=== PATIENT | male | born 1950 | race Hispanic/Latino ===

== ENCOUNTER 2017-06-20 14:58 | Outpatient (CLI) | payer BC ==
[2017-06-20 15:58] LABS: Hemoglobin 11.5 g/dL (14.0-18.0); Mean Corpuscular HGB CONC 33.1 g/dL (32.0-36.0); Mean Corpuscular Hemoglobin 29.6 pg (27.0-31.0); Mean Corpuscular Volume 89.4 fl (80.0-94.0); Mean Platelet Volume 6.9 fL (7.4-10.4); Platelet Count 338 thou/uL (130-400); RBC Distribution Width 12.8 % (11.5-14.5); Red Blood Cell (RBC) Count 3.89 mill/uL (4.70-6.10); White Blood Cell (WBC) Count 6.3 thou/uL (4.8-10.8)
[2017-06-20 16:06] LABS: INR-International Normal Ratio 0.9; Prothrombin Time 12.6 SEC (12.0-14.7)
[2017-06-20 16:07] LABS: PTT 31.8 SEC (22.9-36.1)
[2017-06-20 16:23] LABS: ALT (SGPT) 16 U/L (8-55); AST (SGOT) 23 U/L (5-34); Albumin 4.3 g/dL (3.4-4.8); Alkaline Phosphatase 69 U/L (40-150); Anion Gap 16 mmol/L (10-20); BUN (Urea Nitrogen) 24 mg/dL (8.4-25.7); Bilirubin, Total 0.3 mg/dL (0.2-1.2); Calc. Creatinine Clearance 0 mL/min (70-130); Calcium 9.8 mg/dL (7.8-10.44); Carbon Dioxide 23 mmol/L (23-31); Chloride 106 mmol/L (98-107); Estimated GFR-MDRD 53; Globulin 3.1 g/dL (2.4-3.5); Glucose 122 mg/dL (80-115); Potassium 3.8 mmol/L (3.5-5.1); Protein, Total 7.4 g/dL (5.8-8.1); Sodium 141 mmol/L (136-145)
== END 2017-06-20 14:59 | disposition home or self-care (01) ==
LOC: LABBT 14:58
PROVIDERS: ATTEND Internal Medicine Cardiovascular Disease
DX: Z01.818 Encounter for other preprocedural examination (principal); I20.9 Angina pectoris, unspecified
CPT/HCPCS: 80053; 85027; 85610; 85730

== ENCOUNTER 2017-06-26 05:40 | Day surgery (SDC) | payer BC ==
[2017-06-20 15:28] VITALS: BMI 28.5
[2017-06-26] MEDS ORDERED: Diazepam 5 MG TAB ONE (06:53)
[2017-06-26] MEDS ORDERED: Diazepam 5 MG TAB PO SCH (07:00)
[2017-06-26 07:01] LABS: ALT (SGPT) 15 U/L (8-55); AST (SGOT) 15 U/L (5-34); Albumin 4.4 g/dL (3.4-4.8); Alkaline Phosphatase 68 U/L (40-150); Anion Gap 14 mmol/L (10-20); BUN (Urea Nitrogen) 15 mg/dL (8.4-25.7); Bilirubin, Total 0.4 mg/dL (0.2-1.2); Calc. Creatinine Clearance 111 mL/min (70-130); Calcium 10.3 mg/dL (7.8-10.44); Carbon Dioxide 25 mmol/L (23-31); Cardiac Risk 2.6 (Less than 4.5); Chloride 105 mmol/L (98-107); Cholesterol 126 mg/dl (< 200 Desired); Estimated GFR-MDRD 87; Globulin 3.1 g/dL (2.4-3.5); Glucose 154 mg/dL (80-115); HDL Cholesterol 48 mg/dL (>60 Neg Risk); LDL Cholesterol, Calculated 66 mg/dL; Protein, Total 7.5 g/dL (5.8-8.1); Sodium 140 mmol/L (136-145); Triglycerides 62 mg/dL (Less than 150)
[2017-06-26] MEDS ORDERED: Fentanyl 100 MCG/2 ML VIAL ONE (07:30)
[2017-06-26] MEDS ORDERED: Midazolam HCl 2 mg/2 ml Vial ONE (07:30)
[2017-06-26] MEDS ORDERED: Heparin 10,000 UNITS/1 ML VIAL ONE (07:54)
[2017-06-26] MEDS ORDERED: Nitroglycerin 100MG/250ML BOT 250 ML ONE (07:54)
[2017-06-26] MEDS ORDERED: Morphine 4 MG/ML VIAL ONE (09:21)
[2017-06-26] MEDS ORDERED: Sodium Chloride 0.9% 1,000 ML IV SCH (09:24)
[2017-06-26] MEDS ORDERED: Mag-Al 1200 mg/1200 mg/30 ML UDCUP PO PRN (11:05)
[2017-06-26] MEDS ORDERED: Morphine 4 MG/ML Carpuject SLOW IVP PRN (11:05)
[2017-06-26] MEDS ORDERED: Morphine 4 MG/ML VIAL SLOW IVP PRN ×2 (11:15)
[2017-06-26 14:16] LABS: Troponin I 0.169 ng/mL (< 0.028)
[2017-06-26 14:19] LABS: CKMB 7.7 ng/mL (0-6.6)
[2017-06-26] MEDS ORDERED: Iopamidol 370 76% 100 ML VIAL ONE (15:51)
[2017-06-26] MEDS ORDERED: Iopamidol 370 76% 50 ML VIAL FS ONE (15:51)
[2017-06-26] MEDS ORDERED: TICAGRELOR 90 MG TABLET PO SCH (21:00)
== END 2017-06-26 15:31 | disposition home or self-care (01) ==
LOC: CCL 05:40
PROVIDERS: ATTEND Internal Medicine Cardiovascular Disease
DX: I25.119 Atherosclerotic heart disease of native coronary artery with unspecified angina pectoris (principal); I10 Essential (primary) hypertension; E78.00 Pure hypercholesterolemia, unspecified; E11.9 Type 2 diabetes mellitus without complications; F17.210 Nicotine dependence, cigarettes, uncomplicated; Z79.82 Long term (current) use of aspirin; Z79.84 Long term (current) use of oral hypoglycemic drugs; Z79.899 Other long term (current) drug therapy; Z98.890 Other specified postprocedural states
CPT/HCPCS: 36415; 76942; 80053; 80061; 82553; 84484; 85347; 92928; 92978; 93005; 93010; 93458; 93798; 96374; 99152; 99153; C1725; C1753; C1760; C1769; C1874; C9600; J1644; J2250; J2270; J3010